=== PATIENT | male | born 1990 | race Caucasian/White ===

== ENCOUNTER 2017-04-06 05:42 | Inpatient (IN) | payer OTHER ==
[~2017-04-06] VITALS: Ht 170.2 cm; Wt 89.1 kg
[~2017-04-06 05:42] MED LIST: CeFAZolin 2 GM/DEXTROSE 50 ML IV ONE; RINGERS SOLUTION,LACTATED 1,000 ML IV ONE
[2017-04-06] MEDS ORDERED: RINGERS SOLUTION,LACTATED 1,000 ML IV ONE ×2 (06:00→09:18)
[2017-04-06] MEDS ORDERED: SODIUM CHLORIDE 0.9% 20 ML ONE (07:02)
[2017-04-06] MEDS ORDERED: GELATIN SPONGE,ABSORBABLE 100 MM TP ONE (07:02)
[2017-04-06] MEDS ORDERED: THROMBIN, BOVINE 20000 UNITS/VIAL POWDER TP ONE (07:02)
[2017-04-06] MEDS ORDERED: BACITRACIN 50,000 UNITS/VIAL ONE (07:03)
[2017-04-06] MEDS ORDERED: ACETAMINOPHEN 1000 MG/ISO-OSM 100 ML IV ONE (07:05)
[2017-04-06] MEDS ORDERED: CeFAZolin 2 GM/DEXTROSE 50 ML IV ONE (08:00)
[2017-04-06] MEDS ORDERED: BUPIVACAINE LIPOSOME/PF 1.3%-13.3MG/ML SUSPENSION 20 ML VIAL INJ ONE (09:30)
[2017-04-06] MEDS ORDERED: FentaNYL CITRATE-PF 100 MCG/2 ML VIAL IVP PRN (09:45)
[2017-04-06] MEDS ORDERED: HYDROmorphone 2 MG/ML SYRINGE IVP PRN ×2 (09:45→10:30)
[2017-04-06] MEDS ORDERED: MEPERIDINE-PF 25 MG/ML SYRINGE IVP PRN (09:45)
[2017-04-06] MEDS ORDERED: BUPIVACAINE HCL/PF 0.5% 30 ML VIAL ONE (09:47)
[2017-04-06] MEDS ORDERED: OxyCODONE HCL/ACETAMINOPHEN 5-325 MG TABLET PO PRN ×3 (10:30→11:00)
[2017-04-06] MEDS ORDERED: MORPHINE SULFATE 2 MG/ML SYRINGE IVP PRN (10:30)
[2017-04-06] MEDS ORDERED: DIAZEPAM 5 MG TABLET PO PRN (10:30)
[2017-04-06] MEDS ORDERED: 0.9% SODIUM CHLORIDE 10 ML SYRINGE IVP PRN (11:00)
[2017-04-06] MEDS ORDERED: MAGNESIUM HYDROXIDE SUSPENSION 30 ML UDCUP PO PRN (11:00)
[2017-04-06] MEDS ORDERED: ACETAMINOPHEN 325 MG TABLET PO PRN (11:00)
[2017-04-06] MEDS ORDERED: CYCLOBENZAPRINE HCL 10 MG TABLET PO PRN (11:00)
[2017-04-06] MEDS ORDERED: ONDANSETRON HCL 4 MG/2 ML VIAL IVP PRN (11:00)
[2017-04-06] MEDS ORDERED: DEXAMETHASONE SOD PHOS 4 MG/ML VIAL IVP ONE (12:00)
[2017-04-06] MEDS ORDERED: HYDROmorphone 2 MG/ML SYRINGE IVP ONE (12:00)
[2017-04-06] MEDS ORDERED: MIDAZOLAM HCL 2 MG/2 ML VIAL IVP ONE (12:00)
[2017-04-06] MEDS ORDERED: METOCLOPRAMIDE HCL 5 MG/ML 2 ML VIAL IVP ONE (12:00)
[2017-04-06] MEDS ORDERED: KETOROLAC TROMETHAMINE 60 MG/2 ML VIAL IM ONE (12:00)
[2017-04-06] MEDS: CYCLOBENZAPRINE HCL 10 MG TABLET PO SCH ×3 (12:00→23:27)
[2017-04-06] MEDS ORDERED: PHENYLEPHRINE HCL 10 MG/ML VIAL IVP ONE (12:00)
[2017-04-06] MEDS ORDERED: PROPOFOL 1% 20 ML VIAL IVP ONE (12:00)
[2017-04-06] MEDS ORDERED: KETAMINE HCL 50 MG/ML 10 ML VIAL IVP ONE (12:00)
[2017-04-06] MEDS ORDERED: FentaNYL CITRATE-PF 100 MCG/2 ML VIAL IVP ONE (12:00)
[2017-04-06] MEDS ORDERED: ONDANSETRON HCL 4 MG/2 ML VIAL IVP ONE (12:00)
[2017-04-06] MEDS ORDERED: LIDOCAINE HCL/PF 2% 5 ML VIAL INJ ONE (12:00)
[2017-04-06 12:36] LABS: BASOPHILS % (AUTO) 0.1 % (0.0-2.0); EOSINOPHILS % (AUTO) 0.2 % (1.0-6.0); HEMATOCRIT 48.3 % (41-53); HEMOGLOBIN 16.7 g/dL (13.5-17.5); LYMPHOCYTES # (AUTO) 2.2 K/uL (1.0-4.8); LYMPHOCYTES % (AUTO) 17.7 % (22.0-44.0); MEAN CORPUSCULAR HEMOGLOBIN 30.5 pg (26.0-34.0); MEAN CORPUSCULAR HGB CONC 34.5 G/dL (31.0-37.0); MEAN CORPUSCULAR VOLUME 89 fL (80-100); MONOCYTES # (AUTO) 0.2 K/uL (0.1-1.0); MONOCYTES % (AUTO) 1.6 % (2.0-9.0); NEUTROPHILS # (AUTO) 9.8 K/uL (1.8-7.7); NEUTROPHILS % (AUTO) 80.4 % (40.0-70.0); PLATELET COUNT (AUTO) 199 K/uL (150-450); RED BLOOD CELL COUNT(AUTO) 5.45 MIL/uL (4.50-5.90); RED CELL DISTRIBUTION WIDTH 13.4 % (11.5-14.5); WHITE BLOOD COUNT (AUTO) 12.2 K/uL (4.5-11.0)
[2017-04-06 12:46] LABS: ANION GAP 9 mmol/L (8-16); CARBON DIOXIDE 25 mmol/L (22-29); CHLORIDE 104 mmol/L (98-107); CREATININE 1.04 mg/dL (0.60-1.30); GLOMERULAR FILTR. RATE CALC > 60 mL/min (>60); POTASSIUM 4.4 mmol/L (3.5-5.1); SODIUM SERUM 138 mmol/L (136-145); UREA NITROGEN, BLOOD 15 mg/dL (7-18)
[2017-04-06] MEDS ORDERED: INFLUENZA VIRUS VACCINE QVS 2017-18 (3YR+)/PF 60 MCG/0.5 ML SYRINGE IM ONE (16:00)
[2017-04-06] MEDS: ACETAMINOPHEN 1000 MG/ISO-OSM 100 ML IV SCH ×2 (16:33→23:27)
[2017-04-06 16:51] VITALS: BP 113/61
[2017-04-06] MEDS: CeFAZolin 2 GM/DEXTROSE 50 ML IV SCH (18:09)
[2017-04-06] MEDS: KETOROLAC TROMETHAMINE 30 MG/ML VIAL IVP SCH ×2 (18:15→23:28)
[2017-04-06] MEDS ORDERED: OXYGEN THERAPY IH SCH (20:00)
[2017-04-06 20:43] VITALS: BP 124/52
[2017-04-06] MEDS: ZOLPIDEM TARTRATE 5 MG TABLET PO PRN (23:38)
[2017-04-06] MEDS ORDERED: SODIUM CHLORIDE 0.9% 500 ML IV ONE (23:41)
[2017-04-06 23:47] VITALS: BP 136/55
[2017-04-07] MEDS: CeFAZolin 2 GM/DEXTROSE 50 ML IV SCH ×2 (05:33→17:52)
[2017-04-07] MEDS: KETOROLAC TROMETHAMINE 30 MG/ML VIAL IVP SCH ×3 (05:33→17:51)
[2017-04-07] MEDS: CYCLOBENZAPRINE HCL 10 MG TABLET PO SCH ×3 (05:33→17:52)
[2017-04-07 05:54] VITALS: BP 123/60
[2017-04-07 06:05] VITALS: BP 137/85
[2017-04-07 08:00] VITALS: BP 116/61
[2017-04-07] MEDS: ACETAMINOPHEN 1000 MG/ISO-OSM 100 ML IV SCH ×2 (08:18→16:04)
[2017-04-07] MEDS: DOCUSATE SODIUM 100 MG CAPSULE PO SCH ×2 (08:19→20:08)
[2017-04-07 12:00] VITALS: BP 115/67
[2017-04-07 16:00] VITALS: BP 124/70
[2017-04-07 20:00] VITALS: BP 129/63
[2017-04-08] MEDS: CYCLOBENZAPRINE HCL 10 MG TABLET PO SCH ×2 (00:11→05:45)
[2017-04-08] MEDS: ZOLPIDEM TARTRATE 5 MG TABLET PO PRN (00:11)
[2017-04-08] MEDS: KETOROLAC TROMETHAMINE 30 MG/ML VIAL IVP SCH ×2 (00:11→05:45)
[2017-04-08 00:29] VITALS: BP 126/74
[2017-04-08 05:53] VITALS: BP 106/60
[2017-04-08 08:00] VITALS: BP 111/75
[2017-04-08] MEDS: DOCUSATE SODIUM 100 MG CAPSULE PO SCH (09:14)
[2017-04-08] MEDS ORDERED: NICOTINE 14 MG/24 HOUR PATCH TD ONE ×2 (09:30→10:00)
[2017-04-08] MEDS ORDERED: PERCT PO (09:58)
[2017-04-08] MEDS ORDERED: CYCL10 PO (10:00)
[2017-04-08] MEDS ORDERED: CEPH500 PO (10:01)
[2017-04-08] MEDS ORDERED: NICO-703 TD (10:07)
== END 2017-04-08 11:40 | disposition home or self-care (01) | DRG 460 ==
LOC: 4E 05:42
PROVIDERS: ADMIT Neurological Surgery; ATTEND Neurological Surgery
PROC: 0SB40ZZ Excision of Lumbosacral Disc, Open Approach (ICD-10-PCS; 2017-04-06)
PROC: 01NB0ZZ Release Lumbar Nerve, Open Approach (ICD-10-PCS; 2017-04-06)
PROC: B01B1ZZ Fluoroscopy of Spinal Cord using Low Osmolar Contrast (ICD-10-PCS; 2017-04-06)
PROC: 0SG30AJ Fusion of Lumbosacral Joint with Interbody Fusion Device, Posterior Approach, Anterior Column, Open Approach (ICD-10-PCS; principal; 2017-04-06 08:31)
DX: M43.17 Spondylolisthesis, lumbosacral region (principal); F17.210 Nicotine dependence, cigarettes, uncomplicated; M51.16 Intervertebral disc disorders with radiculopathy, lumbar region; M51.17 Intervertebral disc disorders with radiculopathy, lumbosacral region; V89.2XXA Person injured in unspecified motor-vehicle accident, traffic, initial encounter; Y92.410 Unspecified street and highway as the place of occurrence of the external cause
CPT/HCPCS: 86850; 86900; 86901; 86920; 87081; 97161; C1713; C9290; G0238; J0131; J0690; J1030; J1100; J1170; J1885; J2250; J2370; J2405; J2704; J2765; J3010; J3490; J7040; J7120